=== PATIENT | female | born 1985 | race Caucasian/White ===

== ENCOUNTER 2020-03-04 16:19 | Emergency (ER) | payer OTHER, SELFPAY ==
[2020-03-04 16:22] VITALS: BP 162/117; PULSE 71; RESP 16; TEMP 36.7; O2SAT 97; BMI 35.5
--- NOTE | 2020-03-04 16:56 | XRR_ITS ---
PROCEDURE INFORMATION: Exam: XR Chest, 1 View Exam date and time: 03/04/2020 4:58 PM Age: 34 years old Clinical indication: Pain and condition or disease; Other: Covid +; Chest pain; Type not specified TECHNIQUE: Imaging protocol: XR of the chest Views: 1 view. COMPARISON: CR Chest 2 views* [id number] 12/03/2016 12:21 PM FINDINGS: Lungs: Unremarkable. No consolidation. Pleural space: Unremarkable. No pleural effusion. No pneumothorax. Heart/Mediastinum: Unremarkable. No cardiomegaly. Bones/joints: Unremarkable. XR/XR chest 1V portable [id number] IMPRESSION: No acute findings.
--- NOTE | 2020-03-04 16:56 | ECG_ITS ---
[facility] Test Date: 2020-03-04 Pat Name: Deborah Martines Department: Room: Gender: Female Collections Manager: : 1985 Requested By: Tonja Saunders I Order Number: [id number] Andrea MD: Phil Yang M.D. Measurements Intervals [place] Rate: 77 P: 36 [place]: 168 QRS: -2 QRSD: 99 T: 53 QT: 362 QTc: 410 Interpretive Statements SINUS RHYTHM LOW QRS VOLTAGE IN PRECORDIAL LEADS [QRS DEFLECTION < 1.0 mV IN CHEST LEADS] No previous ECG available for comparison Electronically Signed On 03-04-2020 19:15:23 CDT by Phil Yang M.D. [email or web address]
--- NOTE | 2020-03-04 16:59 | ED_ITS ---
HPI - Chest Pain General: Chief Complaint: Chest Pain Stated Complaint: covid +, palpitations and cp Time Seen by Provider: 03/04/20 16:36 Source: patient Mode of arrival: ambulatory Limitations: no limitations History of Present Illness: HPI narrative: Patient is a 34-year-old female who was diagnosed with COVID-19 about 2 weeks ago. She has been doing well and in her usual state of health and quarantine until yesterday when she developed left-sided chest pain radiating to her left shoulder. The pain has been gradually worsening. Pain is worse on exertion and improves with rest. She has associated nausea and dizziness. No prior cardiac history. No fever. MD complaint: chest pain Onset (ago): day(s) (1) Timing of current episode: constant Prior episodes: No Onset: during exertion Pain location: left chest Pain radiation: left shoulder Severity: moderate Quality: tightness and heaviness Relieving factors: nothing Exacerbating factors: exertion Associated symptoms: Reports dyspnea, nausea and palpitations; Deny abdominal pain, diaphoresis, fever(s), leg edema, sense of impending doom, syncope or vomiting Treatment prior to arrival: none Review of Systems General: Reports: 10 or more systems reviewed and unremarkable except in HPI and below Const: Denies: fever(s) or diaphoresis Eyes: Denies: change in vision or blurry vision ENMT: Denies: throat pain, enlarged tonsils, odynophagia, hoarseness, mouth pain or swelling of lips/tongue Card: Reports: palpitations; Denies: syncope Resp: Reports: dyspnea GI: Reports: nausea; Denies: abdominal pain or vomiting : Denies: flank pain, difficulty voiding, dysuria, urinary frequency, urinary urgency or urinary hesitancy Musc: Denies: neck pain, back pain or extremity swelling Skin/Breast: Denies: rash, pruritus or erythema Neuro: Denies: headache(s), numbness in extremities or weakness in extremities Endo: Denies: polyuria, polydipsia or tired all the time [facility] ED PFSH: Medical History (Reviewed 03/04/20 @ 17:03 by Tonja Saunders MD, [facility] [place]) Asthma diagnosed as a teenager and is aggravated by exercise. She has not had an attack since 2003 and has not had to use an albuterol inhaler since then. Denies intubations or hospitalizations for her asthma No pertinent past medical history Denies: Diabetes, thyroid problems, hypertension, seizures, DVT/PE. PCP: Dr. Sahu Surgical History (Reviewed 03/04/20 @ 17:03 by Tonja Saunders MD, [facility] [place]) S/P section x 2 02/27/2014-low transverse delivery at [facility] by Dr. Barajas for nonreassuring heart tracing -scheduled repeat low transverse delivery at 39 weeks and [address] Pastrana at [facility]. S/P cholecystectomy Laparoscopic procedure performed on 11/04/[address] Gil. Patient was 13 weeks at that time. S/P tonsillectomy in 2008 Family History (Reviewed 03/04/20 @ 17:03 by Tonja Saunders MD, [facility] [place]) Grandmother Diabetes maternal and paternal Grandfather Diabetes maternal and paternal Liver cancer paternal Brother Asthma Sister Asthma Family/Other Thyroid condition paternal aunt, paternal uncle Denies family history of Colon cancer Ovarian cancer DVT (deep venous thrombosis) Hyperlipidemia Breast cancer Pulmonary embolism Hypertension Uterine cancer Stroke Social History (Reviewed 03/04/20 @ 17:03 by Tonja Saunders MD, [facility] [place]) Smoking and tobacco status: never smoked Alcohol intake: unknown Additional social history: - Tobacco Use: Denies current or past use Drug Use: Denies Alcohol Use: Denies 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 Exam Const: COMMON NORMALS: no acute distress, average body habitus, patient oriented x3, no limitations, healthy appearing, alert and well nourished Neck/C-Spine: COMMON NORMALS: full ROM, supple, no meningeal signs, no JVD and No carotid bruits Chest: COMMONS NORMALS: normal inspection of the chest and normal palpation of entire chest wall Resp: COMMON NORMALS: normal respiratory effort, No retractions, No use of accessory muscles, clear to auscultation bilaterally and percussion normal AUSCULTATION: clear to auscultation bilaterally PERCUSSION: percussion normal Cardio: COMMON NORMALS: no JVD, regular rate, regular rhythm, S1 normal heart sound present, S2 normal heart sound present, No gallops present (Cardio), No clicks present (Cardio), No murmurs present (Cardio), No rub (Cardio) and Peripheral pulses 2+ throughout RATE: regular rate RHYTHM: regular rhythm HEART SOUNDS: S1 normal heart sound present and S2 normal heart sound present PERIPHERAL PULSES: Peripheral pulses 2+ throughout GI: COMMON NORMALS: Normal to inspection, nondistended, normoactive bowel sounds present, Soft to palpation, non-tender, No hepatosplenomegaly present, no masses and no bruits PALPATION: Yes Soft to palpation and Yes No hepatosplenomegaly present Extremity: COMMON NORMALS: normal to inspection, full ROM, capillary refill normal, no calf tenderness and no pedal edema Neuro: COMMON NORMALS: patient oriented x3 SENSORIUM/ORIENTATION: Yes alert MENINGEAL SIGNS: Yes no meningeal signs Skin: COMMON NORMALS: no rashes or lesions noted, no wounds, turgor normal, no jaundice, no petechiae and no mottling GENERAL SKIN EXAM: no rashes or lesions noted and turgor normal Course Reevaluation(s): Reevaluation #1: Discussed her lab and imaging findings with her. Negative for acute findings. All the COVID ancillary labs normal, so I believe she is gotten over the illness. She will be discharged home with no new orders. Negative high-sensitivity troponin. She voiced understanding and is in agreement with the plan Time: 20:47 Vital Signs: Vital signs: Vital Signs Temperature 98.1 F 03/04/20 16:22 Pulse Rate 109 H 03/04/20 18:54 Respiratory Rate 18 03/04/20 21:01 Blood Pressure 140/106 03/04/20 18:54 Pulse Oximetry 96 03/04/20 18:54 MDM - Chest Pain MDM Narrative: Medical decision making narrative: 34-year-old female patient who presents to the emergency department with left-sided chest pain. She was diagnosed with COVID 19 about 2 weeks ago. She has been doing well since then. Evaluation in the emergency department is unremarkable with no cardiac etiology for her pain discovered. D-dimer was also negative, she is discharged home with no new orders. Medical Records: Attestation: I reviewed the patient's medical records. Lab Data: Attestation: I reviewed the patient's lab results. Labs: Lab Results 03/04/20 03/04/20 03/04/20 Range/Units 17:50 17:50 17:50 WBC 10.6 H (4.0-10.0) 10^3/ uL RBC 4.78 (4.1-5.3) 10^6/u L Hgb 14.0 (11.5-15.3) g/dL Hct 44.4 (37.0-47.0) % MCV 92.9 (81-99) fL MCH 29.3 (28.0-34.0) pg MCHC 31.5 (30.0-36.0) g/dL RDW 13.6 (12.1-15.1) % Plt Count 239 (130-400) 10^3/c mm MPV 11.0 H (7.4-10.4) fL Neut % (Auto) 60.0 % Lymph % (Auto) 29.9 % [place] % (Auto) 8.1 % Eos % (Auto) 1.2 % Baso % (Auto) 0.6 % Neut # (Auto) 6.38 (1.8-7.7) 10^3/u L Lymph # (Auto) 3.2 (0.8-4.8) 10^3/u L [place] # (Auto) 0.9 (0.2-0.9) 10^3/u L Eos # (Auto) 0.1 (0.0-0.8) 10^3/u L Baso # (Auto) 0.1 (0.0-0.1) 10^3/u L Nucleated RBC % (a uto) 0 % Nucleated RBCs # 0.0 /100WBC Fibrinogen Cancelled D-Dimer Cancelled Sodium Cancelled Potassium Cancelled Chloride Cancelled Carbon Dioxide Cancelled Anion Gap Cancelled BUN Cancelled Creatinine Cancelled GFR Calculation Cancelled Glucose Cancelled Calculated Osmolal ity Cancelled Calcium Cancelled Ferritin Cancelled Total Bilirubin Cancelled AST Cancelled ALT Cancelled Alkaline Phosphata se Cancelled Lactate Dehydrogen ase Cancelled Creatine Kinase Cancelled Troponin T Baselin e Troponin T 120 Min [place] (0-10) ng/L Delta Troponin T (0-10) ABS# C-Reactive Protein Cancelled NT-Pro-B Natriuret Pep Cancelled Total Protein Cancelled Albumin Cancelled Globulin Cancelled Lipase Cancelled HCG, Qual (Negative) 03/04/20 03/04/20 03/04/20 Range/Units 17:50 18:05 18:40 WBC (4.0-10.0) 10^3/ uL RBC (4.1-5.3) 10^6/u L Hgb (11.5-15.3) g/dL Hct (37.0-47.0) % MCV (81-99) fL MCH (28.0-34.0) pg MCHC (30.0-36.0) g/dL RDW (12.1-15.1) % Plt Count (130-400) 10^3/c mm MPV (7.4-10.4) fL Neut % (Auto) % Lymph % (Auto) % [place] % (Auto) % Eos % (Auto) % Baso % (Auto) % Neut # (Auto) (1.8-7.7) 10^3/u L Lymph # (Auto) (0.8-4.8) 10^3/u L [place] # (Auto) (0.2-0.9) 10^3/u L Eos # (Auto) (0.0-0.8) 10^3/u L Baso # (Auto) (0.0-0.1) 10^3/u L Nucleated RBC % (a uto) % Nucleated RBCs # /100WBC Fibrinogen 343 D-Dimer <= 0.27 Sodium Potassium Chloride Carbon Dioxide Anion Gap BUN Creatinine GFR Calculation Glucose Calculated Osmolal ity Calcium Ferritin Total Bilirubin AST ALT Alkaline Phosphata se Lactate Dehydrogen ase Creatine Kinase Troponin T Baselin e Cancelled Troponin T 120 Min [place] (0-10) ng/L Delta Troponin T (0-10) ABS# C-Reactive Protein NT-Pro-B Natriuret Pep Total Protein Albumin Globulin Lipase HCG, Qual Negative (Negative) 03/04/20 03/04/20 03/04/20 Range/Units 18:40 18:40 20:05 WBC (4.0-10.0) 10^3/ uL RBC (4.1-5.3) 10^6/u L Hgb (11.5-15.3) g/dL Hct (37.0-47.0) % MCV (81-99) fL MCH (28.0-34.0) pg MCHC (30.0-36.0) g/dL RDW (12.1-15.1) % Plt Count (130-400) 10^3/c mm MPV (7.4-10.4) fL Neut % (Auto) % Lymph % (Auto) % [place] % (Auto) % Eos % (Auto) % Baso % (Auto) % Neut # (Auto) (1.8-7.7) 10^3/u L Lymph # (Auto) (0.8-4.8) 10^3/u L [place] # (Auto) (0.2-0.9) 10^3/u L Eos # (Auto) (0.0-0.8) 10^3/u L Baso # (Auto) (0.0-0.1) 10^3/u L Nucleated RBC % (a uto) % Nucleated RBCs # /100WBC Fibrinogen D-Dimer Sodium 139 Potassium 4.4 Chloride 104 Carbon Dioxide 25 Anion Gap 14.4 BUN 10 Creatinine 0.7 GFR Calculation 94.7 Glucose 97 Calculated Osmolal ity 287 Calcium 10.2 Ferritin 80 Total Bilirubin 0.2 AST 17 ALT 24 Alkaline Phosphata se 81 Lactate Dehydrogen ase 165 Creatine Kinase 97 Troponin T Baselin e 6 Troponin T 120 Min [place] 6.00 (0-10) ng/L Delta Troponin T 0 (0-10) ABS# C-Reactive Protein 4.8 NT-Pro-B Natriuret Pep 34 Total Protein 6.8 Albumin 4.5 Globulin 2.3 Lipase 31 HCG, Qual (Negative) Imaging Data^: CXR: Attestation: I personally reviewed and interpreted this imaging study as follows: Radiologist's impression: [place] [address] XRay Report Signed Patient: Deborah Martines #: [id number] : 1985Acct#:[id number] Age/Sex: 34 / FADM Date: 03/04/20 Loc: ERRoom/Bed: Attending Dr: Ordering Provider/Ordering MD: Tonja Saunders MD, [facility] Date of Service: 03/04/20 Procedure(s): XR chest 1V portable [id number] Accession Number(s): [id number] Report Number: [id number] PROCEDURE INFORMATION: Exam: XR Chest, 1 View Exam date and time: 03/04/2020 4:58 PM Age: 34 years old Clinical indication: Pain and condition or disease; Other: Covid +; Chest pain; Type not specified TECHNIQUE: Imaging protocol: XR of the chest Views: 1 view. COMPARISON: CR Chest 2 views* [id number] 12/03/2016 12:21 PM FINDINGS: Lungs: Unremarkable. No consolidation. Pleural space: Unremarkable. No pleural effusion. No pneumothorax. Heart/Mediastinum: Unremarkable. No cardiomegaly. Bones/joints: Unremarkable. XR/XR chest 1V portable [id number] IMPRESSION: No acute findings. Dictated By:Steve Scruggs Signed By:Shravan Scruggs Date/Time:03/04/201822 DD/ 20 EKG Data^: EKG 1: Attestation: I personally reviewed and interpreted this EKG as follows: EKG interpretation date: 03/04/20 EKG interpretation time: 17:05 Prior EKG tracings: not available for review Interpretation: Sinus rhythm. Heart rate [address] changes. No STEMI Discharge Plan Discharge Patient Disposition: Home Clinical Impression: Chest pain Qualifiers: Chest pain type: unspecified Qualified Code(s): R07.9 - Chest pain, unspecified Condition: Stable Prescriptions: Continued Mirena 20 mcg/24 hours (5 yrs) 52 mg intrauterine device 20 mcg INTRAUTERI .continuous RF: 0 Discharge Orders: Discharge Order (Routine); Ordered 03/04/20 Ordered By: Tonja Saunders Referrals: Virgilio Sahu MD [Primary Care Provider] - 1-3 days Discharge Diet: Usual diet Discharge Activity: Increase activity as tolerated Patient Instructions: Chest Pain (ED) Activity Restrictions/Additional Instructions: Return for any new or worsening symptoms. Follow-up with your primary care provider within 3 days. Stand Alone Forms: Work/School Release Discharge Date/Time: 03/04/20 21:06 Coding Level of Care Code ED [place] for Chg Fwd Exam Comprehensive
[2020-03-04 17:54] VITALS: BP 123/68; PULSE 77; RESP 18; O2SAT 98
[2020-03-04 18:05] LABS: Basophils # 0.1 10^3/uL (0.0-0.1); Basophils % 0.6 %; Eosinophils # 0.1 10^3/uL (0.0-0.8); Eosinophils % 1.2 %; Hematocrit 44.4 % (37.0-47.0); Lymphocytes # 3.2 10^3/uL (0.8-4.8); Lymphocytes % 29.9 %; Mean Corpuscular HGB Conc 31.5 g/dL (30.0-36.0); Mean Corpuscular Hemoglobin 29.3 pg (28.0-34.0); Mean Corpuscular Volume 92.9 fL (81-99); Monocytes # 0.9 10^3/uL (0.2-0.9); Monocytes % 8.1 %; Neutrophils # 6.38 10^3/uL (1.8-7.7); Nucleated Red Blood Cells % 0 %; Platelet Count 239 10^3/cmm (130-400); Red Blood Count 4.78 10^6/uL (4.1-5.3); Red Cell Distribution Width 13.6 % (12.1-15.1); White Blood Count 10.6 10^3/uL (4.0-10.0)
[2020-03-04 18:28] LABS: HCG Qualitative Urine. Negative (Negative)
[2020-03-04 18:54] VITALS: BP 140/106; PULSE 109; RESP 20; O2SAT 96
[2020-03-04 19:13] LABS: Troponin(5th) Baseline 6 ng/L (0-10)
[2020-03-04 19:23] LABS: Alanine Aminotransferase 24 U/L (0-33); Albumin Level 4.5 g/dL (3.5-5.2); Alkaline Phosphatase 81 IU/L (35-105); Anion Gap 14.4 (5-19); Aspartate Amino Transferase 17 U/L (0-32); Blood Urea Nitrogen 10 mg/dL (6-20); C Reactive Protein 4.8 mg/L (0.0-4.9); Calcium 10.2 mg/dL (8.5-10.5); Carbon Dioxide 25 mmol/L (22-29); Chloride 104 mmol/L (98-107); Creatine Phosphokinase 97 U/L (26-192); Ferritin 80 ng/mL (15-150); Globulin 2.3 g/dL (1.3-4.6); Glomerular Filtration Rate 94.7 mL/min (90-130); Glucose 97 mg/dL (65-115); Lactate Dehydrogenase 165 U/L (135-214); Lipase 31 U/L (13-60); NT Pro B Type Natriuretic Pept 34 pg/mL (0-125); Osmolality Calculated 287 mOsm/kg (285-295); Potassium 4.4 mmol/L (3.5-5.1); Sodium 139 mmol/L (136-145); Total Bilirubin 0.2 mg/dL (0.15-1.2); Total Protein 6.8 g/dL (6.6-8.7)
[2020-03-04 20:00] VITALS: RESP 18
[2020-03-04 20:23] LABS: D Dimer <= 0.27 ug/mIFEU (0-0.59)
[2020-03-04 20:37] LABS: Fibrinogen 343 mg/dL (174-498)
[2020-03-04 20:52] LABS: Troponin 5 2HR Delta 0 ABS# (0-10)
[2020-03-04 21:00] VITALS: RESP 18
[2020-03-04 21:01] VITALS: RESP 18
== END 2020-03-04 21:06 | disposition home or self-care (01) ==
PROVIDERS: Emergency Provider Family Medicine; PCP Family Medicine
DX: R07.9 Chest pain, unspecified (principal)
CPT/HCPCS: 12345; 36415; 71045; 80053; 81025; 82550; 82728; 83615; 83690; 83880; 84484; 85025; 85378; 85384; 86140; 93005; 99282; 99283

== ENCOUNTER 2020-04-02 14:06 | Outpatient (CLI) | payer OTHER, SELFPAY ==
--- NOTE | 2020-04-02 14:12 | USCV_ITS ---
Deborah Martines Age: 34 Gender: F : 1985 Exam Date: 04/02/2020 14:26 Ordering Phys: Virgilio Sahu MD Technologist: Esteban Genao Exam Location: [facility] Indication: Dyspnea BP: 114 / 90 HR: 83 Rhythm: Sinus Technical Quality: Adequate MEASUREMENTS (Male / Female) Normal Values 2D ECHO LV Diastolic Diameter PLAX 4.5 cm 4.2 - 5.9 / 3.9 - 5.3 cm LV Systolic Diameter PLAX 2.9 cm IVS Diastolic Thickness 0.9 cm 0.6 - 1.0 / 0.6 - 0.9 cm IVS Systolic Thickness 1.1 cm LVPW Diastolic Thickness 1.0 cm 0.6 - 1.0 / 0.6 - 0.9 cm LVPW Systolic Thickness 1.2 cm LVOT Diameter 2.0 cm LV Ejection Fraction 2D Teich 58.3 % LV Ejection Fraction MOD 2C 67.1 % LV Ejection Fraction 2C AL 66.1 % LA Diameter 3.7 cm LA Width 3.8 cm LA Height 5.6 cm RA Width 3.3 cm RA Height 5.1 cm Aorta at Sinotubular Diameter 0.8 cm M-MODE LV Diastolic Diameter MM 3.8 cm 4.2 - 5.9 / 3.9 - 5.3 cm LV Systolic Diameter MM 2.3 cm LV Ejection Fraction MM Teich 70.1 % IVS Diastolic Thickness MM 1.4 cm 0.6 - 1.0 / 0.6 - 0.9 cm IVS Systolic Thickness MM 1.5 cm LVPW Diastolic Thickness MM 1.0 cm 0.6 - 1.0 / 0.6 - 0.9 cm LVPW Systolic Thickness MM 1.5 cm RV Diastolic Diameter MM 3.1 cm Aortic Annulus Diameter 2.9 cm LA Ao Ratio MM 1.5 MV E Point Septal Separation 0.8 cm DOPPLER AV Peak Velocity 155.0 cm/s LVOT Peak Velocity 115.0 cm/s AV Area Cont Eq vti 2.1 cm squared AV Area Cont Eq pk 2.4 cm squared MV Area PHT 3.5 cm squared Mitral E to A Ratio 1.4 MV E' Velocity 67.0 cm/s Mitral E to MV E' Ratio 8.4 Mitral E to LV E' Lateral Ratio 7.3 Mitral E to LV E' Septal Ratio 10.0 TR Peak Velocity 139.7 cm/s TR Peak Gradient 7.8 mmHg TV Peak E Velocity 80.0 cm/s Right Atrial Pressure 3.0 mmHg Pulmonary Artery Systolic Pressu 10.8 mmHg PV Peak Velocity 123.0 cm/s FINDINGS Left Ventricle Normal left ventricular cavity size. Normal left ventricular systolic function. No regional wall motion abnormalities. Left ventricular ejection fraction is estimated at 65 %. Normal diastolic function. Right Ventricle The right ventricle is normal in size and function. Right Atrium The right atrium is normal in size. Left Atrium The left atrium is normal in size. Mitral Valve Structurally normal mitral valve without significant stenosis or prolapse. There is no mitral regurgitation. Aortic Valve Structurally normal aortic valve without significant sclerosis or stenosis. There is no aortic regurgitation. Tricuspid Valve Structurally normal tricuspid valve without significant stenosis or regurgitation. Pulmonary artery systolic pressure is normal. Pulmonic Valve Structurally normal pulmonic valve without significant stenosis. There is no pulmonic regurgitation. Pericardium Normal pericardium without effusion. Aorta Normal ascending aorta dimension. CONCLUSIONS 1. Normal left ventricular size, systolic function and wall thickness, with no regional wall motion abnormalities. Left ventricular ejection fraction is estimated at 64%. Normal left ventricular wall thickness. Normal diastolic filling pattern. 2. No significant chamber abnormalities. 3. No sigificant valve abnormalities. 4. There is no pericardial effusion. 5. There are no intracardiac masses. 6. Pulmonary artery systolic pressure is within normal limits. 7. Right atrial pressure is around 5 mm of mercury. 8. There are no prior echocardiogram studies to compare. Miriam Chicas MD (Electronically Signed) Final Date: 02 April 2020 17:43 S
== END 2020-04-02 14:07 | disposition home or self-care (01) ==
PROVIDERS: PCP Family Medicine; Visit Provider Family Medicine
DX: R06.00 Dyspnea, unspecified (principal)
CPT/HCPCS: 93306

== ENCOUNTER 2021-01-16 20:45 | Emergency (ER) | payer OTHER, SELFPAY ==
[2021-01-16 20:51] VITALS: BP 150/93; PULSE 90; RESP 18; TEMP 36.8; O2SAT 96; BMI 39.9
--- NOTE | 2021-01-16 21:01 | W.ED.ALLEREA ---
HPI - Allergic Reaction General: Chief complaint: Allergic Reaction Stated complaint: Throat Closing up Time Seen by Provider: 01/16/21 21:01 History of Present Illness: HPI narrative: 35-year-old female comes in today with complaints of itching in her throat. Patient states that she had stopped taking Augmentin on Thursday at completion of treatment of a otitis media. Patient also took a Diflucan at the end of her completion of her Augmentin. Patient reports this evening she started having itching in the back of her throat and difficulty swallowing. Patient appears well. Patient appears in no acute distress. Patient had taken 50 mg of Benadryl with minimal relief about 3 hours prior to evaluation in the ER. Review of Systems General: Reports: 10 or more systems reviewed and unremarkable except in HPI and below ENMT: Reports: throat pain PFSH ED PFSH: Medical History (Updated 01/16/21 @ 21:46 by Ermias Lobo [facility]) Asthma diagnosed as a teenager and is aggravated by exercise. She has not had an attack since 2003 and has not had to use an albuterol inhaler since then. Denies intubations or hospitalizations for her asthma No pertinent past medical history Denies: Diabetes, thyroid problems, hypertension, seizures, DVT/PE. PCP: Dr. Sahu Surgical History S/P section x 2 02/27/2014-low transverse delivery at [facility] by Dr. Barajas for nonreassuring heart tracing -scheduled repeat low transverse delivery at 39 weeks and [address] Pastrana at [facility]. S/P cholecystectomy Laparoscopic procedure performed on 11/04/[address] Gil. Patient was 13 weeks at that time. 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: COMMON NORMALS: no acute distress and patient oriented x3 GENERAL APPEARANCE: cooperative HENMT: COMMON NORMALS: normocephalic, TM's normal bilaterally and Normal external nose present HEAD & SCALP: normal to inspection and normocephalic NOSE: Normal external nose present TYMPANIC MEMBRANE: TM's normal bilaterally MOUTH: Normal oral and palatal mucosa present THROAT: posterior oropharynx abnormal erythema and postnasal drainage Eye: GENERAL EYE: appearance normal, both eyes and all related structures Neck/C-Spine: COMMON NORMALS: full ROM Lymph: LYMPHATIC: no lymphadenopathy noted Chest: COMMONS NORMALS: normal inspection of the chest Resp: COMMON NORMALS: normal respiratory effort EFFORT & INSPECTION: Yes able to speak in complete sentences Cardio: COMMON NORMALS: regular rate and regular rhythm RATE: regular rate RHYTHM: regular rhythm GI: COMMON NORMALS: non-tender Extremity: COMMON NORMALS: normal to inspection Neuro: COMMON NORMALS: patient oriented x3 and moves all extremities Psych: COMMON NORMALS: mental status grossly normal and cooperative Skin: COMMON NORMALS: no rashes or lesions noted GENERAL SKIN EXAM: no rashes or lesions noted Course Vital Signs: Vital signs: Vital Signs Temperature 98.3 F 01/16/21 20:51 Pulse Rate 90 01/16/21 20:51 Respiratory Rate 18 01/16/21 20:51 Blood Pressure 150/93 01/16/21 20:51 Pulse Oximetry 96 01/16/21 20:51 MDM - Allergic Reaction MDM Narrative: Medical decision making narrative: 35-year-old female comes in for possible reaction to Augmentin or Diflucan. On exam patient has some erythema to the posterior pharynx with clear drainage. Lungs are clear to auscultation. Abdomen soft nontender. Patient does have some mild periorbital edema. Differential diagnosis includes adverse drug effect, allergic reaction to medication, seasonal allergies. Patient was treated with Benadryl 50 mg IM and 10 mg of dexamethasone. Patient had improvement in symptoms. We will continue patient with loratadine, dexamethasone, and famotidine. Patient reported understanding of care plan and need for follow-up or return to the ER. Discharge Plan Discharge Patient Disposition: Home Clinical Impression: Allergic reaction Qualifiers: Encounter type: initial encounter Qualified Code(s): T78.40XA - Allergy, unspecified, initial encounter Condition: Stable Prescriptions: New dexamethasone 4 mg tablet 4 mg PO BID Qty: 10 RF: 0 famotidine 20 mg tablet 20 mg PO BID Qty: 10 RF: 0 loratadine 10 mg tablet 10 mg PO BID Qty: 10 RF: 0 No Action Mirena 20 mcg/24 hours (5 yrs) 52 mg intrauterine device 20 mcg INTRAUTERI .continuous RF: 0 Discharge Orders: Discharge ED (Routine); Ordered 01/16/21 Ordered By: Ermias Lobo Referrals: Virgilio Sahu MD [Primary Care Provider] - Discharge Diet: Usual diet Discharge Activity: Increase activity as tolerated Patient Instructions: Antibiotic Medication Allergy (ED), Opioid Safety Activity Restrictions/Additional Instructions: Drink plenty of water. Take medication, dexamethasone, twice a day for next 5 days. Take the medication with food on your stomach to avoid gastric upset. Use famotidine, Pepcid, twice daily to help with extra gastric acid production while taking steroid. Avoid hot showers, and spicy foods as this may aggravate your histamine response to the allergic reaction. Use a good emollient lotion to help with dry skin. Use Benadryl 1 tablet every 4 hours as needed for breakthrough itching. Use Claritin, loratadine, 1 tablet twice a day for prevention of itching for the next 5 days. Follow-up with primary care as needed. Return to the ER for new concerns. Coding Level of Care Code ED Attic Blower for Lidia Lopez
[2021-01-16] MEDS: diphenhydrAMINE 50 mg/mL SDV 1mL IM (21:32)
[2021-01-16] MEDS: dexamethasone 10 mg/mL INJ IM (21:32)
--- NOTE | 2021-01-16 22:10 | PC.NURSE ---
2200 patient states she is feeling better. the itching is starting to subside, the sensation of her throat closing has completed dissipated.
[2021-01-16 22:11] VITALS: BP 131/93; PULSE 77; RESP 18; O2SAT 96
== END 2021-01-16 22:12 | disposition home or self-care (01) ==
PROVIDERS: Emergency Provider Nurse Practitioner Family
DX: T78.40XA Allergy, unspecified, initial encounter (principal); H05.229 Edema of unspecified orbit; J45.909 Unspecified asthma, uncomplicated
CPT/HCPCS: 96372; 99283; J1100; J1200

== ENCOUNTER → 2023-12-03 14:48 | Outpatient (BNVA) | payer OTHER, SELFPAY | PROVIDERS: Visit Provider Nurse Practitioner Women's Health | DX: Z01.419 Encounter for gynecological examination (general) (routine) without abnormal findings (principal); B37.31 Acute candidiasis of vulva and vagina; N92.1 Excessive and frequent menstruation with irregular cycle; Z97.5 Presence of (intrauterine) contraceptive device; B37.9 Candidiasis, unspecified | CPT/HCPCS: 87624 ==